=== PATIENT | female | born 1990 | race Hispanic/Latino ===

== ENCOUNTER → 2024-05-29 | Outpatient (CLI) | payer OTHER | END | disposition home or self-care (01) | LOC: RAH 14:04 | PROVIDERS: ATTEND Obstetrics & Gynecology | DX: N83.292 Other ovarian cyst, left side (principal) | CPT/HCPCS: 76830 ==

== ENCOUNTER 2024-11-17 08:50 | Day surgery (SDC) | payer OTHER ==
[~2024-11-17] VITALS: Ht 162.6 cm; Wt 113.4 kg
[2024-11-17] VITALS (11 sets, daily range): BP systolic 115–133; BP diastolic 72–88; PULSE 63–79; RESP 15–18; TEMP 97.3–98.2
[~2024-11-17 08:50] MED LIST: OMEP40CA21 PO
[2024-11-17] MEDS: 0.9%NACL 1000ML 1,000 ML IV ONE (09:46)
[2024-11-17] MEDS ORDERED: LIDOCAINE HCL 400MG/20ML VIAL ONE (10:46)
[2024-11-17] MEDS ORDERED: proPOFol 10 MG/ML 20ML VIAL IV ONE (10:46)
== END 2024-11-17 11:58 | disposition home or self-care (01) ==
LOC: DAH 08:50
PROVIDERS: ATTEND Internal Medicine Gastroenterology
DX: R10.13 Epigastric pain (principal); R10.12 Left upper quadrant pain; K21.00 Gastro-esophageal reflux disease with esophagitis, without bleeding; K31.89 Other diseases of stomach and duodenum; E78.5 Hyperlipidemia, unspecified; K64.0 First degree hemorrhoids; K76.0 Fatty (change of) liver, not elsewhere classified; K44.9 Diaphragmatic hernia without obstruction or gangrene; D12.6 Benign neoplasm of colon, unspecified; E66.9 Obesity, unspecified; Z90.49 Acquired absence of other specified parts of digestive tract; Z68.42 Body mass index [BMI] 45.0-49.9, adult; Z79.899 Other long term (current) drug therapy
CPT/HCPCS: 43239; 81025; J3490; J7030; J2704; A4620; A4215 ×2; A4223; A4222; A4221; A4663; A4606